=== PATIENT | male | born 1985 | race Caucasian/White ===

== ENCOUNTER 2016-10-20 14:06 | Emergency (ER) | payer OTHER ==
[2016-10-20 15:42] VITALS: BP 140/85
--- NOTE | 2016-10-20 15:45 | UC ---
Throat Pain/Nasal Jose Guadalupe HPI - HPI Summary HPI Summary: 31 Y/O male with complaint of sore throat, cough and nasal congestion x 7 days. Denies dyspnea, fever, chills, nausea or vomiting today. States had one episode of vomiting on 10/19/16. - History of Current Complaint Chief Complaint: UCGeneralIllness Stated Complaint: SORE THROAT,COUGH Hx Obtained From: Patient Onset/Duration: Gradual Onset Severity: Mild Pain Intensity: 2 Pain Scale Used: 0-10 Numeric Cough: Productive Associated Signs & Symptoms: Positive: Sinus Discomfort Related History: Seasonal Allergies - Epiglottits Risk Factors Epiglottis Risk Factors: Negative - Allergies/Home Medications Allergies/Adverse Reactions: Allergies Allergy/AdvReac Type Severity Reaction Status Date / Time No Known Allergies Allergy Verified 10/20/16 15:19 PMH/Surg Hx/FS Hx/Imm Hx Previously Healthy: Yes - Surgical History Surgical History: None - Family History Known Family History: Positive: None - Social History Alcohol Use: None Substance Use Type: None Smoking Status (MU): Never Smoked Tobacco Review of Systems Constitutional: Negative Skin: Negative Eyes: Negative ENT: Sore Throat, Ear Ache, Nasal Discharge Respiratory: Cough Cardiovascular: Negative Gastrointestinal: Negative Genitourinary: Negative Motor: Negative Neurovascular: Negative Musculoskeletal: Negative Neurological: Negative Psychological: Negative All Other Systems Reviewed And Are Negative: Yes Physical Exam Triage Information Reviewed: Yes Appearance: Well-Appearing Vital Signs: Initial Vital Signs Temp 97.8 F 10/20/16 15:19 Pulse 102 10/20/16 15:19 Resp 16 10/20/16 15:19 BP 140/85 10/20/16 15:19 Pulse Ox 100 10/20/16 15:19 Vital Signs Reviewed: Yes Eye Exam: Normal Eyes: Positive: Conjunctiva Clear ENT: Positive: Pharyngeal erythema, TMs normal Dental Exam: Normal Neck exam: Normal Neck: Positive: Supple Respiratory Exam: Normal Respiratory: Positive: Lungs clear, Normal breath sounds Cardiovascular Exam: Normal Cardiovascular: Positive: RRR Abdominal Exam: Normal Abdomen Description: Positive: Nontender Bowel Sounds: Positive: Present Musculoskeletal Exam: Normal Musculoskeletal: Positive: Strength Intact Neurological Exam: Normal Neurological: Positive: Alert Psychological Exam: Normal Skin Exam: Normal Throat Pain/Nasal Course/Dx - Differential Dx/Diagnosis Differential Diagnosis/HQI/PQRI: Pharyngitis, URI Provider Diagnoses: Pharyngitis Discharge - Discharge Plan Condition: Stable Disposition: HOME Patient Education Materials: Guaifenesin (By mouth), Pharyngitis (ED) Additional Instructions: Follow up with walk in or primary medical provider for return of fever or worsening throat pain or respiratory symptoms. Keep well hydrated and take mucinex as directed.
== END 2016-10-20 16:35 | disposition home or self-care (01) ==
LOC: UCCORT 14:06
DX: J02.9 Acute pharyngitis, unspecified (principal); R05 Cough; R03.0 Elevated blood-pressure reading, without diagnosis of hypertension
CPT/HCPCS: 87651; 99212; G0463

== ENCOUNTER 2019-01-17 15:22 | Emergency (ER) | payer OTHER ==
[2019-01-17 15:40] VITALS: BP 143/68
--- NOTE | 2019-01-17 15:51 | UC ---
Lower Extremity/Ankle HPI - HPI Summary HPI Summary: 33-year-old male presents with complaints of right foot pain. States at approximately 10:30 this morning he was descending stairs and missed the bottom step causing an injury to his foot. He is unsure of the exact mechanism of injury. States pain has progressively worsened since the time of the injury. Reports pain is located to the lateral aspect of his foot. He was able to bear weight immediately after the injury and in the clinic. He has not taken any [id number] analgesics at this time. Denies any numbness or tingling. - History of Current Complaint Stated Complaint: RIGHT FOOT INJURY Time Seen by Provider: 01/17/19 15:34 Hx Obtained From: Patient Pain Intensity: 1 - Allergies/Home Medications Allergies/Adverse Reactions: Allergies Allergy/AdvReac Type Severity Reaction Status Date / Time No Known Allergies Allergy Verified 01/17/19 15:36 Home Medications: Home Medications Zypan 600 mg PO TID 01/17/19 [History Confirmed 01/17/19] PMH/Surg Hx/FS Hx/Imm Hx Previously Healthy: Yes GI/ History: Gastroesophageal Reflux - Surgical History Surgical History: None - Family History Known Family History: Positive: Non-Contributory - Social History Occupation: Employed Full-time Lives: Alone Alcohol Use: Rare Substance Use Type: None Smoking Status (MU): Former Smoker When Did the Patient Quit Smoking/Using Tobacco: 2011 Review of Systems All Other Systems Reviewed And Are Negative: Yes Constitutional: Positive: Negative Skin: Negative: Bruising Respiratory: Positive: Negative Cardiovascular: Positive: Negative Gastrointestinal: Positive: Negative Genitourinary: Positive: Negative Motor: Negative: Weakness Neurovascular: Negative: Decreased Sensation Musculoskeletal: Positive: Other: - See HPI Neurological: Positive: Negative Is Patient Immunocompromised?: No Physical Exam - Summary Physical Exam Summary: GENERAL APPEARANCE: Well developed, well nourished, alert and cooperative, and appears to be in no acute distress. CARDIAC: Normal S1 and S2. No S3, S4 or murmurs. Rhythm is regular. There is no peripheral edema, cyanosis or pallor. Extremities are warm and well perfused. Capillary refill is less than 2 seconds. Peripheral pulses intact. LUNGS: Clear to auscultation without rales, rhonchi, wheezing or diminished breath sounds. ABDOMEN: Positive bowel sounds. Soft, nondistended, nontender. No guarding or rebound. No masses or hepatosplenomegally. MUSKULOSKELETAL: ROM intact to all extremities. No joint erythema or tenderness. Normal muscular development. Normal gait. EXTREMITIES: Tenderness over the proximal 4th and 5th metatarsals without gross deformity, ecchymosis, or edema. Circulation and sensation intact. SKIN: Skin normal color, texture and turgor with no lesions or eruptions. Triage Information Reviewed: Yes Vital Signs: Initial Vital Signs Temp 98.2 F 01/17/19 15:36 Pulse 79 01/17/19 15:36 Resp 18 01/17/19 15:36 BP 143/68 01/17/19 15:36 Pulse Ox 100 01/17/19 15:36 Vital Signs Reviewed: Yes Diagnostics - Radiology No standard instances Radiology Interpretation Completed By: ED Physician - No acute fracture or dislocation. Lower Extremity Course/Dx - Course Course Of Treatment: 33-year-old male presents with complaints of right foot pain. States at approximately 10:30 this morning he was descending stairs and missed the bottom step causing an injury to his foot. He is unsure of the exact mechanism of injury. States pain has progressively worsened since the time of the injury. Reports pain is located to the lateral aspect of his foot. He was able to bear weight immediately after the injury and in the clinic. He has not taken any [id number] analgesics at this time. Denies any numbness or tingling. Afebrile. Mildly hypertensive otherwise vital signs stable. Patient had tenderness over the proximal 4th and 5th metatarsals without gross deformity, ecchymosis, or edema. Circulation and sensation intact. X-ray showed no acute fracture or dislocation. NORAH wrap was applied by the RN. Circulation and sensation intact pre- and post-application. Will treat conservatively for a right foot sprain with [id number]-czp-[id number] analgesics, and RICE. He is to follow- up with orthopedic surgery in 7 days if symptoms are not improving. Anticipatory guidance and warning symptoms were reviewed with the patient. Verbalizes understanding and agrees with plan of care. - Differential Dx/Diagnosis Differential Diagnosis/HQI/PQRI: Contusion, Fracture (Closed), Sprain Provider Diagnosis: Right foot sprain Discharge - Sign-Out/Discharge Documenting (check all that apply): Patient Departure All imaging exams completed and their final reports reviewed: Yes - Discharge Plan Condition: Stable Disposition: HOME Patient Education Materials: Foot Sprain (ED) Referrals: No Primary Care Phys,NOPCP [Primary Care Provider] - Jhony Castro MD [Medical Doctor] - 7 Days (Call for appointment.) Additional Instructions: The x-ray performed in the clinic today showed no evidence of a fracture. I suspect that you have a sprain of the foot. Rest the the foot as much as possible. You may continue to walk and bear weight as tolerated. Avoid strenuous activities. Apply ice to the affected area for 15-20 minutes at least 4 times a day to help with the pain and swelling. Elevate the foot to help reduce swelling. Take acetaminophen (Tylenol) or ibuprofen (Advil, Motrin) according to directions as needed for pain. Follow up with orthopedic surgery in 7 days if symptoms do not improve. Seek immediate medical attention if you have severe pain not managed with pain medication, you are unable to walk or bear any weight, develop numbness or tingling in the foot or toes, or have any worsening of symptoms. - Billing Disposition and Condition Condition: STABLE Disposition: Home
--- NOTE | 2019-01-17 16:31 | UC ---
- Progress Note Progress Note: Final x-ray report reviewed as below. A call was placed to the patient and results reviewed. Discussed that treatment for this type of injury remains unchanged from what we discussed although additional use of a post-op shoe is sometimes recommend. He would like to continue with the plan of care without using a post-op shoe at this time. Stated he could return for the shoe if he felt it was needed. Reinforced follow up with orthopedic surgery if symptoms do not improve. Verbalizes understanding. Order Information: FOOT RIGHT 3+ VWS Accession Number: [id number] CPT: 95900 INDICATION: Pain at the base of the right fifth metatarsal after a fall COMPARISON: None. TECHNIQUE: 3 views of the right foot were obtained. FINDINGS: Depicted better on the oblique view images, there is a questionable faint lucent line along the lateral margin of the base of the right fifth metatarsal. The remaining visualized bones are intact and anatomically aligned. IMPRESSION: QUESTIONABLE NONDISPLACED FRACTURE INVOLVING THE BASE OF THE RIGHT FIFTH METATARSAL. Course/Dx - Diagnoses Provider Diagnoses: Right foot sprain Discharge - Sign-Out/Discharge Documenting (check all that apply): Post-Discharge Follow Up All imaging exams completed and their final reports reviewed: Yes - Discharge Plan Condition: Stable Disposition: HOME Patient Education Materials: Foot Sprain (ED) Referrals: Jhony Castro MD [Medical Doctor] - 7 Days (Call for appointment.) No Primary Care Phys,NOPCP [Primary Care Provider] - Additional Instructions: The x-ray performed in the clinic today showed no evidence of a fracture. I suspect that you have a sprain of the foot. Rest the the foot as much as possible. You may continue to walk and bear weight as tolerated. Avoid strenuous activities. Apply ice to the affected area for 15-20 minutes at least 4 times a day to help with the pain and swelling. Elevate the foot to help reduce swelling. Take acetaminophen (Tylenol) or ibuprofen (Advil, Motrin) according to directions as needed for pain. Follow up with orthopedic surgery in 7 days if symptoms do not improve. Seek immediate medical attention if you have severe pain not managed with pain medication, you are unable to walk or bear any weight, develop numbness or tingling in the foot or toes, or have any worsening of symptoms. - Billing Disposition and Condition Condition: STABLE Disposition: Home
== END 2019-01-17 16:22 | disposition home or self-care (01) ==
LOC: UCCORT 15:22
DX: S93.601A Unspecified sprain of right foot, initial encounter (principal); X58.XXXA Exposure to other specified factors, initial encounter; Y92.9 Unspecified place or not applicable; Z87.891 Personal history of nicotine dependence
CPT/HCPCS: 99212; G0463